=== PATIENT | female | born 1965 | race Caucasian/White ===

== ENCOUNTER 2018-05-02 04:12 | Emergency (ER) | payer BC ==
[2018-05-02 04:56] LABS: ADD MAN DIFF? NO
[2018-05-02 04:58] LABS: WHITE BLOOD COUNT 8.4 10^3/ul (4.8-10.8)
[2018-05-02 04:58] LABS: BASOPHILS % 0.5 % (0.0-2.0); EOSINOPHILS # 0.4 10^3/ul (0.0-0.5); EOSINOPHILS % 4.4 % (0.0-7.0); HEMATOCRIT 34.8 % (37.0-47.0); HEMOGLOBIN 11.6 g/dl (12.0-16.0); LYMPHOCYTES # 2.8 10^3/ul (0.8-2.9); LYMPHOCYTES % 32.7 % (15.0-51.0); MEAN CORPUSCULAR HGB CONC 33.3 g/dl (32.0-37.0); MEAN PLATELET VOLUME 11.3 fl (7.4-10.4); MONOCYTE # 0.6 10^3/ul (0.3-0.9); MONOCYTES % 6.7 % (0.0-11.0); NEUTROPHIL # 4.7 10^3/ul (1.6-7.5); NEUTROPHILS % 55.3 % (39.0-77.0); PLATELET COUNT 291 10^3/UL (140-415); RED CELL DISTRIBUTION WIDTH 13.2 % (11.5-14.5)
[2018-05-02] MEDS: ASPIRIN 81 MG TAB PO (04:59)
[2018-05-02 05:19] LABS: INR 0.94; PROTIME 12.7 Sec (11.9-14.9)
[2018-05-02 05:43] LABS: BLOOD UREA NITROGEN 23 mg/dl (7-20); CALCIUM 9.7 mg/dl (8.4-10.2); CARBON DIOXIDE 26 mmol/L (21-31); CREATININE 0.91 mg/dl (0.44-1.00); Estimated GFR > 60 mL/min (>60); GLUCOSE 137 mg/dl (70-220); POTASSIUM 3.9 mmol/L (3.5-5.1); SODIUM 143 mmol/L (135-144)
[2018-05-02 05:55] LABS: B-TYPE NATRIURETIC PEPTIDE 23 PG/ML (0-125); TROPONIN-I < 0.012 ng/ml (0.000-0.120)
[2018-05-02 05:59] LABS: ANION GAP 13 (5-13); CHLORIDE 104 mmol/L (97-110)
== END 2018-05-02 06:17 | disposition home or self-care (01) ==
LOC: E/R 04:12
DX: R07.89 Other chest pain (principal); D64.9 Anemia, unspecified; E86.0 Dehydration; I10 Essential (primary) hypertension; E11.9 Type 2 diabetes mellitus without complications; E03.9 Hypothyroidism, unspecified
CPT/HCPCS: 36415; 71045; 80048; 83880; 84484; 85025; 85610; 93005; 99285-25

== ENCOUNTER 2018-09-25 09:36 | Emergency (ER) | payer BC ==
[2018-09-25] MEDS: IBUPROFEN 600 MG TAB PO (10:00)
== END 2018-09-25 12:44 | disposition home or self-care (01) ==
LOC: FTE 09:36
DX: S49.92XA Unspecified injury of left shoulder and upper arm, initial encounter (principal); I10 Essential (primary) hypertension; E11.9 Type 2 diabetes mellitus without complications; E03.9 Hypothyroidism, unspecified; W18.39XA Other fall on same level, initial encounter; Y92.9 Unspecified place or not applicable
CPT/HCPCS: 29105; 73080-LT; 99283-25